=== PATIENT | male | born 1990 | race African-American/Black ===

== ENCOUNTER 2017-02-19 07:23 | Outpatient (CLI) | payer MEDICAID | END 2017-02-19 07:24 | disposition critical access hospital (66) | LOC: EMS 07:23 | PROVIDERS: ATTEND Surgery | DX: M25.552 Pain in left hip (principal); S01.81XA Laceration without foreign body of other part of head, initial encounter; V47.5XXA Car driver injured in collision with fixed or stationary object in traffic accident, initial encounter; Y92.414 Local residential or business street as the place of occurrence of the external cause | CPT/HCPCS: A0425; A0427 ==

== ENCOUNTER 2017-02-19 07:43 | Emergency (ER) | payer MEDICAID ==
[2017-02-19] MEDS ORDERED: SODIUM CHLORIDE 0.9% 1,000 ML IV ONE (07:51)
[2017-02-19] MEDS ORDERED: MORPHINE 2 MG/ML SYRINGE IVP STA ×2 (07:51→09:57)
[2017-02-19] MEDS ORDERED: TETANUS/DIPHTHERIA/PERTUSSIS 0.5 ML SYRINGE IM ONE ×2 (07:54→08:19)
[2017-02-19] MEDS ORDERED: PROPARACAINE 0.5% OPHTH DROPS 15 ML LEFTEYE STA (07:55)
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
[2017-02-19] MEDS ORDERED: IOPAMIDOL-300 100 ML VIAL ONE (08:01)
[2017-02-19 08:05] LABS: BASOPHILS # (AUTO) 0.1 10^3/uL (0.0-0.1); BASOPHILS % (AUTO) 0.7 %; EOSINOPHILS % (AUTO) 0.4 %; HCT - HEMATOCRIT 41.8 % (42.0-52.0); HGB - HEMOGLOBIN 13.8 g/dL (14.0-18.0); LYMPHOCYTES # (AUTO) 3.2 10^3/uL (1.5-3.5); MEAN CORPUSCULAR HEMOGLOBIN 26.9 pg (27.0-31.0); MEAN CORPUSCULAR VOLUME 81.7 fL (80.0-94.0); MEAN PLATELET VOLUME 7.7 fL (7.4-11.4); MONOCYTES # (AUTO) 0.7 10^3/uL (0.0-1.0); MONOCYTES % (AUTO) 5.3 %; NEUTROPHILS # (AUTO) 8.7 10^3/uL (1.5-6.6); NEUTROPHILS % (AUTO) 68.6 %; RED BLOOD COUNT 5.12 10^6/uL (4.70-6.10); RED CELL DISTRIBUTION WIDTH 14.2 % (12.0-15.0); UNCORRECTED WHITE BLOOD COUNT 12.7 x10^3/uL; WHITE BLOOD COUNT 12.7 x10^3/uL (4.8-10.8)
[2017-02-19 08:17] LABS: ALBUMIN/GLOBULIN RATIO 1.8 (1.0-2.2); BILIRUBIN,TOTAL 1.1 mg/dL (0.2-1.0); CALCIUM 8.5 mg/dL (8.5-10.3); POTASSIUM 2.9 mmol/L (3.5-5.0); TOTAL PROTEIN 7.5 g/dL (6.7-8.2)
[2017-02-19] MEDS ORDERED: MORPHINE 2 MG/ML SYRINGE ONE ×2 (08:17→10:03)
[2017-02-19] MEDS ORDERED: PROPARACAINE 0.5% OPHTH DROPS 15 ML ONE (08:19)
[2017-02-19] MEDS ORDERED: SODIUM CHLORIDE FLUSH 0.9% 10 ML SYRINGE IVP ONE ×3 (08:20→10:04)
[2017-02-19] MEDS ORDERED: IOPAMIDOL-300 100 ML VIAL IVP ONE (08:31)
[2017-02-19] MEDS ORDERED: ONDANSETRON 4 MG/2 ML VIAL IVP STA ×2 (08:57→09:38)
[2017-02-19] MEDS ORDERED: ONDANSETRON 4 MG/2 ML VIAL ONE ×2 (08:57→10:03)
--- NOTE | 2017-02-19 08:59 | CT Preliminary Report ---
Exam: CT Head W/O IMPRESSION: Normal head CT. [facility] SITE ID: [id number]
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
--- NOTE | 2017-02-19 09:01 | CT Preliminary Report ---
Exam: CT Cervical Spine W/O IMPRESSION: Normal cervical spine CT. [facility] SITE ID: [id number]
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
--- NOTE | 2017-02-19 09:14 | CT Preliminary Report ---
Exam: CT Chest Angio (AORTA) IMPRESSION: Normal chest CT angiogram. No aneurysm or dissection. [facility] SITE ID: [id number]
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
--- NOTE | 2017-02-19 09:19 | CT Preliminary Report ---
Exam: CT Abdomen/Pelvis W/ IMPRESSION: 1. Comminuted, nondisplaced acetabular fracture involving the left hemipelvis described above. No sig nificant associated hematoma seen. Femur is intact. 2. Otherwise, unremarkable exam. [facility] SITE ID: [id number]
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
--- NOTE | 2017-02-19 10:02 | XRAY Preliminary Report ---
Exam: XR Knee 3 View LT IMPRESSION: Normal knee radiography. [facility] SITE ID: [id number]
--- NOTE | 2017-02-19 10:03 | XRAY Preliminary Report ---
Exam: XR Hip w/Pelvis 2-3V LT IMPRESSION: Comminuted acetabular fracture involving left hip, better seen on CT scan. No significant displacement seen. [facility] SITE ID: [id number]
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
--- NOTE | 2017-02-19 10:16 | XRAY Preliminary Report ---
Exam: XR Femur 2V LT IMPRESSION: Comminuted acetabular fracture noted, with femur intact. [facility] SITE ID: [id number]
--- NOTE | 2017-02-19 10:18 | XRAY Preliminary Report ---
Exam: XR Tib/Fib LT IMPRESSION: Lucency noted about the medial malleolus suggestive of nondisplaced fracture with associa elvin soft tissue swelling. [facility] SITE ID: [id number]
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
[2017-02-19 11:15] VITALS: BP 124/53
== END 2017-02-19 11:34 | disposition short-term general hospital (02) ==
LOC: EDUNIT# → ED 07:43
DX: S32.422A Displaced fracture of posterior wall of left acetabulum, initial encounter for closed fracture (principal); S82.55XA Nondisplaced fracture of medial malleolus of left tibia, initial encounter for closed fracture; S01.81XA Laceration without foreign body of other part of head, initial encounter; T15.92XA Foreign body on external eye, part unspecified, left eye, initial encounter; T15.91XA Foreign body on external eye, part unspecified, right eye, initial encounter; V47.5XXA Car driver injured in collision with fixed or stationary object in traffic accident, initial encounter; Y92.488 Other paved roadways as the place of occurrence of the external cause; Z23 Encounter for immunization; M26.4 Malocclusion, unspecified
CPT/HCPCS: 36415; 65220; 70450; 70486; 71275; 72125; 73502; 73552; 73562; 73590; 74177; 80053; 80320; 83690; 85025; 86850; 86900; 86901; 90471; 90715; 96361; 96374; 96375; 96376; 99284; J2270; J3490; Q9967; 99285

== ENCOUNTER 2017-02-19 11:38 | Outpatient (CLI) | payer MEDICAID | END 2017-02-19 11:39 | disposition short-term general hospital (02) | LOC: EMS 11:38 | PROVIDERS: ATTEND Surgery | DX: S32.9XXA Fracture of unspecified parts of lumbosacral spine and pelvis, initial encounter for closed fracture (principal); S82.892A Other fracture of left lower leg, initial encounter for closed fracture; V47.5XXA Car driver injured in collision with fixed or stationary object in traffic accident, initial encounter | CPT/HCPCS: A0170; A0425; A0426 ==

== ENCOUNTER 2017-03-02 13:27 | Outpatient (CLI) | payer MEDICAID | END 2017-03-02 13:28 | LOC: LAB.R 13:27 | PROVIDERS: ATTEND Physician Assistant Medical | DX: R31.0 Gross hematuria (principal) | CPT/HCPCS: 87086 ==

== ENCOUNTER 2017-03-21 08:00 | Outpatient (CLI) | payer MEDICAID | END 2017-03-21 23:59 | disposition home or self-care (01) | LOC: LAB.R 08:00 | PROVIDERS: ATTEND Physician Assistant Medical | DX: L03.211 Cellulitis of face (principal) | CPT/HCPCS: 87070; 87205 ==

== ENCOUNTER 2018-08-03 01:38 | Emergency (ER) | payer MEDICAID ==
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
[2018-08-03] MEDS ORDERED: LIDOCAINE 1% 2 ML VIAL SUBQ STA (02:52)
[2018-08-03] MEDS ORDERED: PENICILLIN VK 250 MG TABLET PO STA (04:30)
[2018-08-03] MEDS ORDERED: BACITRACIN OINT TOP STA ×2 (04:30)
[2018-08-03] MEDS ORDERED: HYDROcod/ACETAM 5/325 MG TABLET PO STA (04:30)
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
[2018-08-03 06:03] VITALS: BP 126/75
== END 2018-08-03 06:00 | disposition home or self-care (01) ==
LOC: ED 01:38
DX: S01.511A Laceration without foreign body of lip, initial encounter (principal); S01.81XA Laceration without foreign body of other part of head, initial encounter; S93.602A Unspecified sprain of left foot, initial encounter; F17.200 Nicotine dependence, unspecified, uncomplicated; X99.8XXA Assault by other sharp object, initial encounter; W22.03XA Walked into furniture, initial encounter; Y92.009 Unspecified place in unspecified non-institutional (private) residence as the place of occurrence of the external cause
CPT/HCPCS: 12011; 73630; 99283; A9270

== ENCOUNTER 2019-04-02 19:05 | Emergency (ER) | payer MEDICAID ==
[2019-04-02 19:21] VITALS: BP 118/70
== END 2019-04-02 19:39 | disposition left against medical advice (07) ==
LOC: ED 19:05
DX: Z53.21 Procedure and treatment not carried out due to patient leaving prior to being seen by health care provider (principal)

== ENCOUNTER 2019-07-15 17:36 | Emergency (ER) | payer MEDICAID ==
--- NOTE | 2019-07-15 20:25 | ED Physician Documentation ---
History of Present Illness - Stated complaint Stated Complaint: RASH ON LEG/GROIN - Chief complaint Chief Complaint: General - History obtained from History obtained from: Patient - History of Present Illness Timing: How many weeks ago (several weeks) Pain level max: 0 Pain level now: 0 - Additonal information Additional information: 29-year-old male with a rash to his groin for the past 2 weeks. He has tried topical antifungals without relief. States that it is itchy. Has had a problem with fungal infection since he was a child. He states he had ringworm regularly. No STD exposure. Nothing makes it better or worse. There is itching present Review of Systems Constitutional: denies: Fever, Chills GI: denies: Vomiting Musculoskeletal: denies: Neck pain, Back pain Neurologic: denies: Headache PD PAST MEDICAL HISTORY - Past Medical History Past Medical History: No - Past Surgical History Past Surgical History: Yes - Present Medications Home Medications: Ambulatory Orders Medication Instructions Recorded Confirmed Hydrocodone/Acetaminophen 1 - 2 each PO Q6H PRN #14 tablet 08/03/18 [Hydrocodon-Acetaminophen 5-325] Penicillin V Potassium 500 mg PO Q6HR #27 tablet 08/03/18 terbinafine HCL [Terbinafine HCl] 250 mg PO BID #28 tablet 07/15/19 - Allergies Allergies/Adverse Reactions: Allergies Allergy/AdvReac Type Severity Reaction Status Date / Time No Known Drug Allergies Allergy Verified 07/15/19 17:41 - Social History Does the pt smoke?: Yes Smoking Status: Current every day smoker Does the pt drink ETOH?: Yes Does the pt have substance abuse?: No - Immunizations Immunizations are current?: Yes - POLST Patient has POLST: No PD ED PE NORMAL - Vitals Vital signs reviewed: Yes - General General: Alert and oriented X 3, No acute distress, Well developed/nourished - HEENT HEENT: Moist mucous membranes - Neck Neck: Supple, no meningeal sign - Male Male : Other (No discharge. No testicular tenderness. There is a scaling rash to the bilateral crural areas.) - Derm Derm: Warm and dry - Neuro Neuro: Alert and oriented X 3 - Psych Psych: Normal mood, Normal affect Results - Vitals Vitals: Vital Signs - 24 hr 07/15/19 07/15/19 17:41 20:44 Temperature 36.5 C Heart Rate 73 68 Respiratory 14 14 Rate Blood Pressure 129/74 121/68 O2 Saturation 99 100 Oxygen O2 Source Room air PD MEDICAL DECISION MAKING - ED course Complexity details: considered differential, d/w patient ED course: Patient with what appears to be tinea cruris. He has failed topical therapies, will place on terbinafine oral. Patient counseled regarding signs and symptoms for which I believe and urgent re-evaluation would be necessary. Patient with good understanding of and agreement to plan and is comfortable going home at this time This document was made in part using voice recognition software. While efforts are made to proofread this document, sound alike and grammatical errors may occur. Departure - Departure Disposition: 01 Home, Self Care Clinical Impression: Tinea cruris Condition: Good Instructions: ED Isidro Koroma Infec Fungal Follow-Up: Cj Blackwell MD [Primary Care Provider] - Within 1 week Prescriptions: terbinafine HCL [Terbinafine HCl] 250 mg PO BID #28 tablet Comments: Take all anti-fungals until gone. Return if you worsen. Discharge Date/Time: 07/15/19 20:44
[2019-07-15 20:45] VITALS: BP 121/68
== END 2019-07-15 20:44 | disposition home or self-care (01) ==
LOC: ED 17:36
DX: B35.6 Tinea cruris (principal); F17.200 Nicotine dependence, unspecified, uncomplicated
CPT/HCPCS: 99282; 99284

== ENCOUNTER 2020-06-28 15:42 | Outpatient (CLI) | payer MEDICAID ==
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
== END 2020-06-28 23:59 | disposition home or self-care (01) ==
LOC: DI.N 15:42
PROVIDERS: ATTEND Nurse Practitioner
DX: S69.91XA Unspecified injury of right wrist, hand and finger(s), initial encounter (principal)

== ENCOUNTER 2023-12-08 09:27 | Emergency (ER) | payer MEDICAID ==
[2023-12-08 10:40] VITALS: BP 127/73; O2SAT 100
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
--- NOTE | 2023-12-08 12:24 | CT Report ---
PROCEDURE: Head WO INDICATIONS: head inj TECHNIQUE: Noncontrast 4.5 mm thick angled axial sections acquired from the foramen magnum to the vertex. For r adiation dose reduction, the following was used: automated exposure control, adjustment of mA and/or kV according to patient size. COMPARISON: None. FINDINGS: Image quality: Excellent. CSF spaces: Basal cisterns are patent. No extra-axial fluid collections. Ventricles are normal in size and shape. Brain: No midline shift. No intracranial masses or hemorrhage. Vickers-white matter interface is norm al. Skull and face: Calvarium and visualized facial bones are intact, without suspicious lesions. Sinuses: Visualized sinuses and mastoids are clear. IMPRESSION: No acute intracranial pathology. Reviewed by: Ruben Grigsby MD on 12/08/2023 12:22 PM PDT Approved by: Ruben Grigsby MD on 12/08/2023 12:22 PM PDT Station ID: [id number]
== END 2023-12-08 12:33 | disposition home or self-care (01) ==
LOC: ED 09:27
DX: S06.0X0A Concussion without loss of consciousness, initial encounter (principal); V89.2XXA Person injured in unspecified motor-vehicle accident, traffic, initial encounter; Y93.89 Activity, other specified; Y92.410 Unspecified street and highway as the place of occurrence of the external cause; F17.200 Nicotine dependence, unspecified, uncomplicated
CPT/HCPCS: 99283; 99284

== ENCOUNTER 2023-12-21 11:15 | Outpatient (CLI) | payer MEDICAID ==
[2023-12-21 22:40] LABS: CHLAMYDIA TRACHOMATIS DNA NEGATIVE (NEGATIVE); NEISSERIA GONORRHOEAE DNA NEGATIVE (NEGATIVE); TRICHOMONAS VAGINALIS DNA NEGATIVE (NEGATIVE)
[2023-12-22 02:08] LABS: HIV SCREEN 4TH GENERATION Non Reactive (Non Reactive)
[2023-12-22 03:11] LABS: HSV 1 IGG TYPE SPEC <0.91 index (0.00-0.90)
[2023-12-22 04:09] LABS: RPR Non Reactive (Non Reactive)
[2023-12-23 00:07] LABS: HCV AB Non Reactive (Non Reactive)
== END 2023-12-21 11:30 | disposition home or self-care (01) ==
LOC: LAB.N 11:15
PROVIDERS: ATTEND Nurse Practitioner
DX: Z11.3 Encounter for screening for infections with a predominantly sexual mode of transmission (principal)
CPT/HCPCS: 36415; 86592; 86695; 86696; 86803; 87389; 87491; 87591; 87661